=== PATIENT | female | born 1995 | race Caucasian/White ===

== ENCOUNTER 2018-07-01 14:24 | Emergency (ER) | payer BC, MEDICAID ==
[~2018-07-01] VITALS: Ht 165.1 cm; Wt 89.0 kg
[~2018-07-01 14:24] MED LIST: CEPH-571 PO
[2018-07-01 15:56] LABS: CLARITY,URINE CLEAR (Clear); COLOR,URINE YELLOW (Yellow); GLUCOSE, URINE NEGATIVE (Neg); KETONES,URINE NEGATIVE (Neg); LEUKOCYTE ESTERASE ,URINE SMALL (Neg); NITRITES, URINE NEGATIVE (Neg); OCCULT BLOOD,URINE NEGATIVE (Neg); PH,URINE 5.5 (4.8-8.0); PROTEIN,URINE NEGATIVE (Neg); UROBILINOGEN,URINE 0.2 E.U/dL (0.2-1.0)
[2018-07-01 15:57] LABS: URINE HCG NEGATIVE (NEG)
[2018-07-01 15:58] LABS: UA COLLECTION TYPE CLN CATCH MIDSTREAM
[2018-07-01 16:15] LABS: BASOPHILS # (AUTO) 0.1 X10'3 (0-0.2); BASOPHILS % (AUTO) 1.1 % (0-1); EOSINOPHILS # (AUTO) 0.1 X10'3 (0-0.9); HEMATOCRIT 40.9 % (35.0-45.0); HEMOGLOBIN 13.7 g/dl (12.0-16.0); LYMPHOCYTES # (AUTO) 2.5 X10'3 (1.1-4.8); LYMPHOCYTES % (AUTO) 38.3 % (21-51); MEAN CORPUSCULAR HGB CONC 33.6 g/dL (33.0-36.5); MEAN CORPUSCULAR VOLUME 92.4 FL (78-98); MONOCYTES # (AUTO) 0.5 X10'3 (0-0.9); NEUTROPHILS # (AUTO) 3.3 X10'3 (1.8-7.7); NEUTROPHILS % (AUTO) 51.6 % (42-75); PLATELET COUNT 285 X10'3 (140-440); RED BLOOD COUNT 4.43 X10'6 (4.20-5.60); RED CELL DISTRIBUTION WIDTH 13.7 % (11.5-14.5); WHITE BLOOD COUNT 6.5 X10'3 (4.5-11.0)
[2018-07-01 16:18] LABS: MUCUS STRANDS FEW /LPF (Neg); SQUAMOUS EPITHELIAL CELL,UR MANY /LPF (FEW)
[2018-07-01 16:20] LABS: BACTERIA,URINE 1+ /HPF (Neg); RBC,URINE 0-2 /HPF (0-2)
[2018-07-01] MEDS ORDERED: ketorolac tromethamine 15mg/ml inj. IM ONE (16:25)
[2018-07-01 16:30] LABS: ALANINE AMINOTRANSFERASE 23 U/L (12-78); ALBUMIN 4.1 G/DL (3.4-5.0); ALBUMIN/GLOBULIN RATIO 1.3 (1.1-1.5); ALKALINE PHOSPHATASE 97 IU/L (46-116); ANION GAP 8 (8-16); ASPARTATE AMINO TRANSFERASE 14 U/L (10-37); BILIRUBIN,TOTAL 0.7 MG/DL (0.1-1.0); BLOOD UREA NITROGEN 16 MG/DL (7-18); BUN/CREATININE RATIO 21.9 (6.6-38.0); CALCIUM 9.3 MG/DL (8.5-10.1); CHLORIDE 105 MMOL/L (99-107); CREATININE 0.73 MG/DL (0.40-0.90); GLUCOSE 95 MG/DL (70-104); POTASSIUM 4.4 MMOL/L (3.5-5.1); SODIUM 140 MMOL/L (135-145); TOTAL CARBON DIOXIDE 27.5 MMOL/L (24-32); TOTAL PROTEIN 7.3 G/DL (6.4-8.2); eGFR > 90 ML/MIN
[2018-07-01] MEDS ORDERED: ONDA4TAB6 PO (18:04)
[2018-07-01] MEDS ORDERED: NITR100C PO (18:04)
[2018-07-01] MEDS ORDERED: IBUP-1985 PO (18:04)
[2018-07-01 18:12] VITALS: BP 125/99
== END 2018-07-01 18:19 | disposition home or self-care (01) ==
LOC: ER 14:24
DX: N39.0 Urinary tract infection, site not specified (principal); R11.2 Nausea with vomiting, unspecified; Z87.891 Personal history of nicotine dependence; Z79.899 Other long term (current) drug therapy
CPT/HCPCS: 36415; 76700; 76830; 76856; 80053; 81001; 81025; 85025; 96372; 99284; J1885

== ENCOUNTER 2018-11-22 18:28 | Emergency (ER) | payer MEDICAID, OTHER ==
[~2018-11-22] VITALS: Ht 165.1 cm; Wt 84.1 kg
[~2018-11-22 18:28] MED LIST changes: +IBUP-1985 PO; +NITR100C PO; +ONDA4TAB6 PO
[2018-11-22 19:18] VITALS: BP 117/64
== END 2018-11-22 20:38 | disposition home or self-care (01) ==
LOC: ER 18:29
DX: M25.561 Pain in right knee (principal); Z79.2 Long term (current) use of antibiotics; Z79.899 Other long term (current) drug therapy
CPT/HCPCS: 29505; 73564; 99284